=== PATIENT | male | born 1995 | race Caucasian/White ===

== ENCOUNTER 2017-08-17 09:55 | Emergency (ER) | payer BC, OTHER ==
[~2017-08-17] VITALS: Ht 182.9 cm; Wt 72.7 kg
[~2017-08-17 09:55] MED LIST: ANEXIA PO; MINOCYCLINE
[2017-08-17] MEDS ORDERED: PRED20TA PO ×2 (10:02→11:42)
[2017-08-17] MEDS ORDERED: PENI250T57 PO (10:02)
[2017-08-17 10:45] LABS: MEAN CORPUSCULAR HEMOGLOBIN 29.2 pg (27.0-33.0); MEAN CORPUSCULAR HGB CONC 34.6 g/dl (32.0-36.5); MEAN CORPUSCULAR VOLUME 84.5 fl (80.0-96.0); PLATELET COUNT, AUTOMATED 212 10^3/uL (150-450); RED CELL DISTRIBUTION WIDTH 13.6 % (11.5-14.5); WHITE BLOOD COUNT 15.2 10^3/uL (4.0-10.0)
[2017-08-17 10:48] LABS: ADD MANUAL DIFFER YES; DIFF SLIDE NUMBER 116
[2017-08-17 11:05] LABS: CONTROL LINE MONO INT CTR LINE PRESENT
[2017-08-17 11:10] LABS: ALBUMIN 4.1 GM/DL (3.2-5.2); ALBUMIN/GLOBULIN RATIO 0.91 (1.00-1.93); ALKALINE PHOSPHATASE 426 U/L (45-117); ALT/SGPT 594 U/L (12-78); ANION GAP 7 MEQ/L (8-16); AST/SGOT 244 U/L (15-37); BILIRUBIN,TOTAL 1.6 MG/DL (0.2-1.0); BLOOD UREA NITROGEN 9 MG/DL (7-18); CALCIUM LEVEL 9.2 MG/DL (8.5-10.1); CARBON DIOXIDE LEVEL 29 MEQ/L (21-32); CHLORIDE LEVEL 95 MEQ/L (98-107); CREATININE FOR GFR 1.05 MG/DL (0.70-1.30); GLOMERULAR FILTRATION RATE > 60.0 (>60); GLUCOSE, FASTING 99 MG/DL (70-105); POTASSIUM SERUM 3.9 MEQ/L (3.5-5.1); SODIUM LEVEL 131 MEQ/L (136-145); TOTAL PROTEIN 8.6 GM/DL (6.4-8.2)
[2017-08-17 11:14] LABS: ANISOCYTOSIS 1+
[2017-08-17] MEDS ORDERED: MEDR4PAK PO (11:40)
[2017-08-17 11:52] VITALS: BP 136/77
== END 2017-08-17 11:58 | disposition home or self-care (01) ==
LOC: M ED 09:55
DX: B27.90 Infectious mononucleosis, unspecified without complication (principal)

== ENCOUNTER → 2018-08-29 | Outpatient (REF) | payer BC, OTHER | LOC: M LAB REF 18:48 | DX: J02.9 Acute pharyngitis, unspecified (principal) | CPT/HCPCS: 87081 ==

== ENCOUNTER → 2018-11-05 | Outpatient (CLI) | payer OTHER, BC ==
[~2018-11-05] MED LIST changes: +MEDR4PAK PO; +PENI250T57 PO; +PRED20TA PO
[2018-11-05 12:12] LABS: BASO % 0.6 % (0.0-1.0); EOS # 0.1 10^3/uL (0.0-0.50); EOS % 2.2 % (0.0-3.0); HEMATOCRIT 43.2 % (42.0-52.0); HEMOGLOBIN 14.5 g/dl (13.5-17.5); LYMPH # 1.8 10^3/uL (1.5-6.5); LYMPH % 28.9 % (24.0-44.0); MEAN CORPUSCULAR HEMOGLOBIN 28.8 pg (27.0-33.0); MEAN CORPUSCULAR HGB CONC 33.6 g/dl (32.0-36.5); MEAN CORPUSCULAR VOLUME 85.9 fl (80.0-96.0); MONO # 0.5 10^3/uL (0.0-0.8); MONO % 7.5 % (0.0-5.0); NEUTROPHILS # 3.8 10^3/uL (1.8-7.7); NEUTROPHILS % 60.5 % (36.0-66.0); PLATELET COUNT, AUTOMATED 257 10^3/uL (150-450); RED BLOOD COUNT 5.03 10^6/uL (4.30-6.10); WHITE BLOOD COUNT 6.3 10^3/uL (4.0-10.0)
[2018-11-05 14:28] LABS: ALBUMIN 3.9 GM/DL (3.2-5.2); ALT/SGPT 31 U/L (12-78); BILIRUBIN,TOTAL 0.5 MG/DL (0.2-1.0); BLOOD UREA NITROGEN 13 MG/DL (7-18); CALCIUM LEVEL 9.2 MG/DL (8.5-10.1); CARBON DIOXIDE LEVEL 31 MEQ/L (21-32); CHLORIDE LEVEL 103 MEQ/L (98-107); CHOLESTEROL LEVEL 159 MG/DL (<200); CHOLESTEROL RISK RATIO 2.484 (<5); CREATININE FOR GFR 1.03 MG/DL (0.70-1.30); FREE T4 0.98 NG/DL (0.76-1.46); GLOMERULAR FILTRATION RATE > 60.0 (>60); GLUCOSE, FASTING 91 MG/DL (70-100); HDL CHOLESTEROL 64 MG/DL (>40); LDL CHOLESTEROL 77 MG/DL (<100); NON-HDL-C 95 MG/DL; POTASSIUM SERUM 4.9 MEQ/L (3.5-5.1); SODIUM LEVEL 137 MEQ/L (136-145); TOTAL PROTEIN 7.5 GM/DL (6.4-8.2); TRIGLYCERIDES LEVEL 88 MG/DL (<150)
== END ==
LOC: M WUC 10:22
PROVIDERS: ATTEND Physician Assistant
DX: Z13.29 Encounter for screening for other suspected endocrine disorder (principal)

== ENCOUNTER → 2018-11-19 | Outpatient (CLI) | payer BC, OTHER ==
--- NOTE | 2018-11-19 09:17 | REP ---
MAXILLOFACIAL CT WITHOUT CONTRAST: HISTORY: Chronic maxillary sinusitis. Moderate mucosal thickening is present in the left maxillary sinus. Mild mucosal thickening is present in the left frontal and right sphenoid sinuses. Minimal mucosal thickening is present in the ethmoid, right frontal, right maxillary and left sphenoid sinuses. The osteomeatal units are patent. The middle and inferior nasal turbinates are partially paradoxical. There is malaika bulla of the middle nasal turbinates. There is mild deviation of the nasal septum to the right. A spur is present arising from the right side of the nasal septum. This spur abuts the right middle and inferior nasal turbinates. The cribriform plate, medial lord of the orbits, and optic canals are intact. The carotid canals form a segment of the posterolateral lord of the sphenoid sinus. The sphenoid sinus septum inserts in into the left internal carotid canal wall. IMPRESSION: Sinus mucosal thickening as described above. Electronically Signed by Humberto Reaves MD 11/19/2018 09:31 A
== END ==
LOC: M RAD 08:10
PROVIDERS: ATTEND Otolaryngology
DX: J32.0 Chronic maxillary sinusitis (principal)

== ENCOUNTER 2019-04-08 08:25 | Day surgery (SDC) | payer BC, OTHER ==
[~2019-04-08] VITALS: Ht 182.9 cm; Wt 76.2 kg
[~2019-04-08 08:25] MED LIST changes: +LIDOCAINE 1% MDV 20ML VIAL SQ PRN
[2019-04-08] MEDS ORDERED: LR 1,000 ML IV ONE (09:00)
[2019-04-08] MEDS ORDERED: dexameTHASONE 4 MG/ML 1ML VIAL (J1100) IV ONE (09:15)
[2019-04-08] MEDS ORDERED: EPINEPHrine 1MG/ML INJ 30ML MD-VIAL As Ordered ONE (10:27)
[2019-04-08] MEDS ORDERED: LIDOCAINE W/EPINEPHRINE 1% 20ML VIAL As Ordered ONE (10:27)
[2019-04-08] MEDS ORDERED: METHYLENE BLUE 0.5% (5MG/ML) 10 ML AMP (PROVAYBLUE)(Q9968 PER 1MG) As Ordered ONE (10:27)
[2019-04-08] MEDS ORDERED: SODIUM CHLORIDE 0.9% NASAL GEL 15GM (AYR) As Ordered ONE (10:28)
[2019-04-08] MEDS ORDERED: ONDANSETRON 4MG/2ML VIAL (J2405) As Ordered ONE (10:33)
[2019-04-08] MEDS ORDERED: dexameTHASONE 4 MG/ML 1ML VIAL (J1100) As Ordered ONE (10:33)
[2019-04-08] MEDS ORDERED: LIDOCAINE 2% INJ 100 MG/5 ML SDV (FOR ANES.) As Ordered ONE (10:33)
[2019-04-08] MEDS ORDERED: PROPOFOL 200 MG/20 ML VIAL As Ordered ONE (10:33)
[2019-04-08] MEDS ORDERED: ROCURONIUM BROMIDE 50 MG/5 ML VIAL As Ordered ONE (10:33)
[2019-04-08] MEDS ORDERED: MIDAZOLAM INJ 2 MG/2 ML VIAL (J2250) As Ordered ONE (10:34)
[2019-04-08] MEDS ORDERED: fentaNYL 100 MCG/2 ML INJECTION (J3010) As Ordered ONE ×2 (10:34→11:11)
[2019-04-08] MEDS ORDERED: SUGAMMADEX SODIUM 500 MG/5 ML VIAL (BRIDION) As Ordered ONE ×2 (11:37→11:38)
[2019-04-08] MEDS ORDERED: fentaNYL 100 MCG/2 ML INJECTION (J3010) IV PRN (12:45)
[2019-04-08] MEDS ORDERED: HYDROMORPHONE HCL 0.5 MG/ 0.5 ML SYRINGE (J1170 PER 1) IV PRN (12:45)
[2019-04-08] MEDS ORDERED: METOCLOPRAMIDE INJ 10MG/2ML VIAL (J2765) IV PRN (12:45)
[2019-04-08] MEDS ORDERED: oxyCODONE 5MG TAB PO PRN (12:45)
[2019-04-08] MEDS ORDERED: ONDANSETRON 4MG/2ML VIAL (J2405) IV PRN (12:45)
[2019-04-08] MEDS ORDERED: ONDANSETRON 4 MG ORAL DISINTEGRATING TAB (Q0162 PER 1MG) PO PRN (13:00)
[2019-04-08] MEDS ORDERED: LR 1,000 ML IV SCH (13:00)
[2019-04-08 13:30] VITALS: BP 130/83
--- NOTE | 2019-04-13 11:35 | RO ---
DATE OF PROCEDURE: 04/08/2019 PREPROCEDURE DIAGNOSIS: Deviated nasal septum and hypertrophic nasal turbinates. POSTPROCEDURE DIAGNOSIS: Deviated nasal septum and hypertrophic nasal turbinates. PROCEDURE: 1. Septoplasty. 2. Coblation of left and right inferior nasal turbinates. SURGEON: Dr. Yuri Taylor PROPERTY SUPERVISOR: ANESTHESIA: General. CLINICAL PREAMBLE: This 23-year-old man presented to the office with history of chronic nasal congestion. Physical examination revealed deviated nasal septum and hypertrophic inferior nasal turbinates. Management options including surgery listed above have been discussed. The patient understood and consented to the procedure. DESCRIPTION OF PROCEDURE: Patient was identified in pre-holding and brought to the operating room in stable condition. In supine position on the operating room table, patient received general anesthesia followed by orotracheal intubation without incident. The patient was prepped and draped in the usual fashion for the procedure. Palpation of the L-strut was found to be intact. Both sides of the nasal cavity was packed using pledgets soaked in 1:1,000 epinephrine. After a waiting period, the pledgets were removed. The nasal septum was infiltrated with 1% lidocaine and 1: 100,000 epinephrine to both sides. Left hemitransfixion incision was made. Mucoperichondrial and mucoperiosteal flap was developed on the left side. Bony cartilaginous junction was identified and disarticulated. The deviated portion of the perpendicular plate and the vomer bone were isolated and resected. The deviated portion of the septal cartilage was also isolate and resected. Maxillary crest was isolated and resected using chisel and malates. Hemostasis was achieved. The hemitransfixion incision was closed using #3-0 chromic suture. At this time, the anterior surface of the left and the right inferior nasal turbinates were infiltrated with 1% lidocaine and 1: 100,000 epinephrine. Stab incision was made to the right inferior nasal turbinate anterior surface. Using the Turbinator coblation wand set at 7 for coblation and 3 for coagulation, the wand was placed via the anterior surface in a submucosal plane. The coblation was carried out as the wand was then withdrawn from the posterior aspect of the submucosal plane of the inferior nasal turbinate to the anterior area. Two passes were made. The same procedure was carried out through the left inferior nasal turbinates as well to complete the coblation of the bilateral nasal turbinates along the submucosal plane. The turbinates were then out-fractured using the [place] elevator. At the end of the procedure, sponge and instrument counts were correct. No complication was encountered. The Rob[place]o splints were inserted into each side of the nasal cavity and then secured anteriorly using #3-0 nylon. General anesthesia was reversed and patient was extubated and brought to the recovery room in stable condition. FANNIE
== END 2019-04-08 14:38 | disposition home or self-care (01) ==
LOC: M SDC 08:25
PROVIDERS: ATTEND Otolaryngology
DX: J34.2 Deviated nasal septum (principal); J34.3 Hypertrophy of nasal turbinates
CPT/HCPCS: 30520; 30802; 88300; J1100; J2250; J2405; J3010; Q9968

== ENCOUNTER → 2023-12-03 | Outpatient (CLI) | payer OTHER ==
[~2023-12-03] MED LIST changes: -LIDOCAINE 1% MDV 20ML VIAL SQ PRN
[2023-12-03 10:36] LABS: BASO % 0.4 % (0.0-1.0); EOS # 0.1 10^3/uL (0.0-0.5); EOS % 1.2 % (0.0-3.0); HEMATOCRIT 39.5 % (42.0-52.0); LYMPH # 1.6 10^3/uL (1.5-5.0); LYMPH % 31.5 % (24.0-44.0); MEAN CORPUSCULAR HEMOGLOBIN 28.4 pg (27.0-33.0); MEAN CORPUSCULAR HGB CONC 32.9 g/dl (32.0-36.5); MEAN CORPUSCULAR VOLUME 86.2 fl (80.0-96.0); MONO # 0.5 10^3/uL (0.0-0.8); MONO % 9.8 % (2.0-8.0); NEUTROPHILS % 56.7 % (36.0-66.0); PLATELET COUNT, AUTOMATED 295 10^3/uL (150-450); RED BLOOD COUNT 4.58 10^6/uL (4.30-6.10); WHITE BLOOD COUNT 5.2 10^3/uL (4.0-10.0)
[2023-12-03 11:02] LABS: ALBUMIN 3.9 G/DL (3.2-5.2); ALKALINE PHOSPHATASE 73 U/L (46-116); ALT/SGPT 33 U/L (7.0-40); AST/SGOT 23 U/L (<34); BILIRUBIN,TOTAL 0.6 MG/DL (0.3-1.2); BLOOD UREA NITROGEN 13 MG/DL (9-23); CALCIUM LEVEL 9.5 MG/DL (8.5-10.1); CARBON DIOXIDE LEVEL 28 MMOL/L (20-31); CHLORIDE LEVEL 110 MMOL/L (98-107); CHOLESTEROL LEVEL 127 MG/DL (<200); CHOLESTEROL RISK RATIO 3.03 (<5); GLOMERULAR FILTRATION RATE > 60.0 (>60); GLUCOSE, FASTING 97 MG/DL (60-100); HDL CHOLESTEROL 41.8 MG/DL (>40); LDL CHOLESTEROL 75.8 MG/DL (<100); NON-HDL-C 85.2 MG/DL; POTASSIUM SERUM 4.7 MMOL/L (3.5-5.1); SODIUM LEVEL 137 MMOL/L (136-145); TOTAL PROTEIN 6.9 G/DL (5.7-8.2); TRIGLYCERIDES LEVEL 47 MG/DL (<150)
[2023-12-03 11:03] LABS: FREE T4 1.31 NG/DL (0.89-1.76); THYROID STIMULATING HORMONE 1.002 uIU/ML (0.55-4.78)
== END ==
LOC: M LAB 08:52
PROVIDERS: ATTEND Nurse Practitioner Adult Health
DX: Z13.220 Encounter for screening for lipoid disorders (principal); Z13.29 Encounter for screening for other suspected endocrine disorder; Z13.228 Encounter for screening for other metabolic disorders